=== PATIENT | male | born 1980 | race Hispanic/Latino ===

== ENCOUNTER 2021-02-19 18:31 | Emergency (ER) | payer SELFPAY ==
[~2021-02-19] VITALS: Ht 170.2 cm; Wt 70.3 kg
[2021-02-19 18:35] VITALS: BP 107/73
[2021-02-19] MEDS ORDERED: ONDANSETRON 4MG INJ ONE (19:04)
[2021-02-19 19:30] LABS: BASOPHILS % (AUTO) 0.5 % (0.0-5.0); EOSINOPHILS % (AUTO) 0.7 % (0.0-8.0); HEMATOCRIT 47.4 % (42-54); LYMPHOCYTES % (AUTO) 2.8 % (21.0-51.0); MEAN CORPUSCULAR HEMOGLOBIN 33.1 pg (27.0-33.0); MEAN CORPUSCULAR HGB CONC 33.8 g/dL (32.0-36.0); MEAN CORPUSCULAR VOLUME 98.1 fL (79-99); MONOCYTES % (AUTO) 11.3 % (3.0-13.0); NEUTROPHILS % (AUTO) 84.1 % (40.0-77.0); PLATELET COUNT (AUTO) 199 K/uL (130-400); RED BLOOD CELL COUNT(AUTO) 4.83 MIL/uL (4.50-6.20); RED CELL DISTRIBUTION WIDTH 12.5 % (11.0-15.5); WHITE BLOOD COUNT (AUTO) 8.2 K/uL (4.8-10.8)
[2021-02-19] MEDS ORDERED: ONDANSETRON 4MG INJ IVP ONE (19:30)
[2021-02-19 19:42] LABS: CREATININE 2.9 mg/dL (0.5-1.5); POTASSIUM 3.3 mmol/L (3.5-5.1)
[2021-02-19 19:46] LABS: BILIRUBIN,TOTAL 0.9 mg/dL (0.2-1.0); TOTAL PROTEIN, SERUM 8.1 g/dL (6.0-8.3)
[2021-02-19] MEDS ORDERED: 0.9%NACL 1000ML 1,000 ML IV ONE ×2 (20:00)
[2021-02-19] MEDS ORDERED: METOCLOPRAMIDE 10 MG/2 ML VIAL ONE (20:12)
[2021-02-19] MEDS ORDERED: 0.9%NACL 1000ML 2,000 ML IV ONE (20:13)
[2021-02-19] MEDS ORDERED: METOCLOPRAMIDE 10 MG/2 ML VIAL IVP ONE (20:30)
[2021-02-19 21:25] LABS: CREATININE 2.4 mg/dL (0.5-1.5); POTASSIUM 3.6 mmol/L (3.5-5.1)
[2021-02-19] MEDS ORDERED: METO-296 PO (21:45)
[2021-02-19] MEDS ORDERED: ONDA4TAB10 PO (21:45)
[2021-02-19 22:00] VITALS: BP 112/71
== END 2021-02-19 22:06 | disposition home or self-care (01) ==
LOC: EDH 18:31
DX: E86.0 Dehydration (principal); R11.2 Nausea with vomiting, unspecified; Z79.899 Other long term (current) drug therapy
CPT/HCPCS: 36415; 80048; 80053; 82150; 83690; 85025; 96361; 96374; 96375; 99284; J2405; J2765; J7030